=== PATIENT | male | born 2000 | race Caucasian/White ===

== ENCOUNTER 2019-05-17 01:36 | Inpatient (IN) ==
[2019-05-17 02:31] LABS: URINE SOURCE CLEAN CATCH
[2019-05-17] MEDS ORDERED: NS 1,000 ML IV ONE ×2 (02:35→05:45)
[2019-05-17] MEDS ORDERED: HUMULIN R SUBQ ONE (02:36)
[2019-05-17 02:37] LABS: BILIRUBIN URINE NEGATIVE (NEGATIVE); BLOOD URINE NEGATIVE (NEGATIVE); COLOR STRAW; GLUCOSE URINE >1000 mg/dL (NEGATIVE); KETONE URINE NEGATIVE (NEGATIVE); LEUKOCYTES URINE NEGATIVE (NEGATIVE); NITRITE URINE NEGATIVE (NEGATIVE); PROTEIN URINE NEGATIVE (NEGATIVE); TURBIDITY URINE CLEAR (CLEAR); UROBILINOGEN URINE NORMAL (NORMAL)
[2019-05-17 02:39] LABS: UR EPITHELIAL CELLS <10 /HPF (<10); URINE BACTERIA NEGATIVE /HPF; URINE RBC <10 /HPF (<10); URINE WBC <10 /HPF (<10)
[2019-05-17 03:20] LABS: BASO# 0.03 X1000 (0.0-0.2); BASO% 0.4 % (0.0-0.8); EOS# 0.26 X1000 (0.0-0.7); EOS% 3.8 % (0.0-10.0); HEMATOCRIT 40.8 % (42.0-52.0); LYMPH# 2.71 X1000 (1.2-3.4); LYMPH% 39.6 % (20.5-51.1); MCH 29.7 PG (27-31); MCHC 34.3 g/dL (33-37); MCV 86.6 FL (81-99); MONO# 0.38 X1000 (0.11-0.59); MONO% 5.6 % (1.7-9.3); MPV 10.2 FL (7.4-10.4); NEUT# 3.46 X1000 (1.4-6.5); NEUT% 50.6 % (42.2-75.2); PLT 231 X1000 (130-400); RBC 4.71 XMIL (4.7-6.1); RDW 11.9 % (11.5-14.5); WBC 6.84 X1000 (4.8-10.8)
[2019-05-17 04:06] LABS: AGAP 10; ALB/GLOB RATIO 2.1; ALBUMIN 4.2 g/dL (3.5-5.0); ALKALINE PHOSPHATASE 154 U/L (32-122); BUN 25 mg/dL (8-22); CALCIUM 8.9 mg/dL (8.8-10.2); CHLORIDE 90 mmol/L (98-107); COSMO 296; CREATININE 1.2 mg/dL (0.7-1.2); ESTIMATED GFR > 60; GOT 13 U/L (10-34); GPT 12 U/L (10-44); POTASSIUM 5.5 mmol/L (3.5-5.1); SODIUM 124 mmol/L (136-145); TCO2 24 mmol/L (25-35); TOTAL BILIRUBIN 0.18 mg/dL (0.20-1.00); TOTAL PROTEIN 6.2 g/dL (6.3-8.3)
[2019-05-17 04:09] LABS: GLUCOSE 845 mg/dL (70-104)
--- NOTE | 2019-05-17 05:49 | PROVIDER DOCUMENTATION ---
HPI-General Adult - General Chief Complaint: High Blood Sugar Stated Complaint: HIGH BLOOD SUGAR Time Seen by Provider: 05/17/19 01:47 Source: patient Allergies/Adverse Reactions: Patient Allergies Allergy/AdvReac Type Severity Reaction Status Date / Time No Known Allergies Allergy Verified 02/01/18 00:16 Home Medications: Home Medication List Medication Instructions Recorded Confirmed Last Taken Type Cephalexin [Keflex] 500 mg PO 4XDAY #40 capsule 02/01/18 Unknown Rx - History of Present Illness -Gen Adult Nature of Presenting Problems: Pt presents with hyperglycemia, pt is a type one diabetic, he hasn't been checking his sugars but he feels generalized weakness and nausea, when he typically feels this way his sugar is elevated, pt denies f/c, kay, cp, sob, cough, ap, n/v/d. Pt is lying in bed in no acute distress. Location of Pain/Injury: reports: none Pain Radiation: reports: no radiation Quality of Pain: reports: none Severity: reports: mild Onset/Duration: reports: 3 days ago Timing: reports: still present Context/Activities at Onset: reports: none Modifying Factors: improves with: nothing Associated Symptoms: reports: nausea Similar Symptoms Previously?: Yes Recently seen or treated by another doctor?: No Review of Systems - Adult - REVIEW OF SYSTEMS - ADULT Constitutional: reports: no symptoms reported Eyes: reports: no symptoms reported Ears, Nose, Mouth & Throat: reports: no symptoms reported Cardiovascular: reports: no symptoms reported Respiratory: reports: no symptoms reported Gastrointestinal: reports: no symptoms reported Genitourinary: reports: no symptoms reported Musculoskeletal: reports: no symptoms reported Integumentary: reports: no symptoms reported Neurological: reports: no symptoms reported Psychiatric: reports: no symptoms reported Endocrine: reports: see HPI Hematologic/Lymphatic: reports: no symptoms reported Allergic/Immunologic: reports: no symptoms reported All Other Systems: Reviewed and Negative Past History - Adult - PAST MEDICAL HISTORY-ADULT Review of Records: reports: Old Records Reviewed, Nursing Assessment Review, Medications Reviewed, Social history reviewed & non-contributory. Major Childhood Illnesses: reports: denies history Cardiovascular: reports: denies history Respiratory: reports: denies history Gastrointestinal: reports: denies history Obstetrical/Gynecological: reports: denies history Genitourinary: reports: denies history Musculoskeletal: reports: denies history Neurological: reports: denies history Psychiatric: reports: denies history Endocrine/Immune: reports: Diabetes Other Conditions: reports: denies history - PRIOR SURGERIES/PROCEDURES Surgical/Procedure History: reports: none - IMMUNIZATION STATUS Childhood Immunizations: See Nurse Assessment Flu Vaccine: See Nurse Assessment Physical Exam-General - PHYSICAL EXAM-ADULT Initial Vital Signs Reviewed: Yes - CONSTITUTIONAL General Appearance: appears well - EYES Eyes: PERRL/EOMI - HEAD, EARS, NOSE, MOUTH & THROAT HENMT: normocephalic/atraumatic - NECK Neck: normal inspection - RESPIRATORY Respiratory: lungs clear, no respiratory distress, no accessory muscle use - CARDIOVASCULAR Cardiovascular: regular rate, rhythm - GASTROINTESTINAL (ABDOMEN) Abdominal Exam: normal bowel sounds, non tender, soft - LYMPHATIC Lymphatic: no adenopathy - MUSCULOSKELETAL Back Exam: normal inspection Extremity: normal range of motion - SKIN Integumentary: normal color - NEUROLOGIC Neurologic: grossly normal - PSYCHIATRIC Psych/Mental Status: normal mood/affect Progress - PLAN OF CARE/RESULTS Progress/Plan/Lab Results: Vital Signs - 8 hr 05/17/19 01:52 05/17/19 02:03 05/17/19 02:32 Temperature 97.5 F L Pulse Rate 73 Respiratory Rate 16 Blood Pressure 157/95 145/95 148/79 O2 Sat by Pulse Oximetry 97 97 100 Laboratory Results - last 24 hr 05/17/19 05/17/19 05/17/19 01:56 02:17 02:17 WBC 6.84 RBC 4.71 Hgb 14.0 Hct 40.8 L MCV 86.6 MCH 29.7 MCHC 34.3 RDW Std Deviation 11.9 Plt Count 231 MPV 10.2 Immature Gran % (Auto) 0.0 Neut % (Auto) 50.6 Lymph % (Auto) 39.6 [place] % (Auto) 5.6 Eos % (Auto) 3.8 Baso % (Auto) 0.4 Immature Gran # (Auto) 0.00 Neut # (Auto) 3.46 Lymph # (Auto) 2.71 [place] # (Auto) 0.38 Eos # (Auto) 0.26 Baso # (Auto) 0.03 Sodium 124 L Potassium 5.5 H Chloride 90 L Carbon Dioxide 24 L Anion Gap 10 BUN 25 H Creatinine 1.2 Estimated GFR/1.73 m2 > 60 BUN/Creatinine Ratio 21 Glucose 845 H* Calculated Osmolality 296 Calcium 8.9 Total Bilirubin 0.18 L AST 13 ALT 12 Alkaline Phosphatase 154 H Total Protein 6.2 L Albumin 4.2 Globulin 2.0 Albumin/Globulin Ratio 2.1 Urine Source CLEAN CATCH Urine Color STRAW Urine Turbidity CLEAR Urine pH 7.0 Ur Specific [place] 1.020 Urine Protein NEGATIVE Ur Glucose (Stick) >1000 A Ur Ketones (Stick) NEGATIVE Urine Blood NEGATIVE Urine Nitrite NEGATIVE Urine Bilirubin NEGATIVE Urobilinogen Dipstick NORMAL Urine Leukocytes NEGATIVE Urine WBC (Auto) <10 Urine RBC (Auto) <10 U Epithel Cells (Auto) <10 Urine Bacteria (Auto) NEGATIVE Orders Category Date Time Status Finger Stick Blood Sugar (ED) DIRECTED Care 05/17/19 02:05 Active BMP [BASIC METABOLIC PANEL] [CHEM] Stat Lab 05/17/19 05:41 Ordered CBC WITH ELECTRONIC DIFF [HEME] Stat Lab 05/17/19 02:17 Completed COMPREHENSIVE METABOLIC PANEL [CHEM] Stat Lab 05/17/19 02:17 Completed UA [URINALYSIS W/POSS RFLX CULT] [URINALYSIS] Stat Lab 05/17/19 01:56 Completed 0.9% Sodium Chloride Inj [Ns] 1,000 ml Med 05/17/19 02:35 Discontinued IV 999 mls/hr 0.9% Sodium Chloride Inj [Ns] 1,000 ml Med 05/17/19 05:45 Active IV 999 mls/hr Insulin Human Regular [Humulin R] Med 05/17/19 02:36 Discontinued 10 unit SUBQ NOW ONE Hypo/Hyperglycemia Complaint Stat Oth 05/17/19 02:05 Ordered Glucose almost 900, will start on insulin drip and admit the patient, spoke with Dr. Lee and he accepted the admission Result Diagrams: 05/17/19 02:17 05/17/19 02:17 Departure - Departure Date of Disposition Decision: 05/17/19 Time of Disposition Decision: 05:48 DIAGNOSIS: Hyperglycemia due to type 1 diabetes mellitus Disposition: ADMITTED INPATIENT 09 Certified Medical Emergency: Emergent Condition: Stable Referrals and Follow-Ups: None,PCP [Primary Care Provider] - - Critical Care Note This patient required my direct & personal management of CC.: No Attestation - Physician/ RORO Attestation Patient care was provided by Advanced Practice Provider:: No The physician spent face to face time with patient:: Yes Advanced Practice Provider documentation review:: Supervising physician onsite and consulted in the evaluation and care of this patient. The physician did have a face to face encounter with the patient.
[2019-05-17] MEDS ORDERED: D50W SYRINGE IV PRN (05:50)
[2019-05-17] MEDS ORDERED: TYLENOL PO PRN (05:50)
[2019-05-17] MEDS ORDERED: ZOFRAN IV PRN (05:50)
[2019-05-17] MEDS ORDERED: HUMULIN R 100 UNIT in NS 100 ML IV SCH (06:00)
[2019-05-17] MEDS ORDERED: NS 1,000 ML IV SCH (06:00)
[2019-05-17] MEDS ORDERED: HUMALOG SUBQ SCH (06:15)
[2019-05-17 06:31] LABS: MAGNESIUM 1.8 mg/dL (1.5-2.7); PHOSPHORUS 3.9 mg/dL (2.7-4.5)
--- NOTE | 2019-05-17 06:42 | HISTORY AND PHYSICAL ---
CHIEF COMPLAINT: High blood sugar. HISTORY OF PRESENT ILLNESS: This is a 18-year-old male with diabetes type 1. He has not been checking his blood sugars regularly. Started feeling generalized weakness and nausea as well as polyphagia. He typically feels this way when his sugar is elevated. He denied any vomiting, diarrhea, headache, shortness of breath. He took his last 10 units of Regular insulin which did not make him feel better so he came into the emergency room. On arrival, his blood glucose was 845. He will be admitted for further evaluation and treatment. PAST MEDICAL HISTORY: Diabetes mellitus type 1. PREVIOUS SURGICAL HISTORY: Denies. SOCIAL HISTORY: Uses alcohol occasionally. He smokes 1/2 pack of cigarettes per day. Smoking cessation was gone over with the patient as well as alcohol cessation. He denies wanting to quit both at this time. Denies illicit drugs. FAMILY HISTORY: Denies chronic illness in his parents or siblings. States he is the only diabetic in the family. No history of coronary artery disease. ALLERGIES: No known drug allergies. HOME MEDICATIONS: Insulin however he stated he does not check his blood sugar regularly and he also was out of insulin. REVIEW OF SYSTEMS: Fourteen point review of systems conducted with the patient. Pertinent positives listed above in the HPI. All other systems reviewed and found to be negative. PHYSICAL EXAMINATION: VITAL SIGNS: Temp 97.5 degrees, pulse 73, respirations 16, blood pressure 148/79, oxygen saturation 100% on room air. GENERAL: Pleasant 18-year-old male lying in the ER stretcher. Answers all questions appropriately. He is alert and oriented x3. HEENT: Head is atraumatic, normocephalic. Pupils equal, round and reactive to light. Extraocular eye movements intact. Sclerae anicteric. Conjunctivae pink. Oral mucosa is dry. NECK: Supple. No JVD. No thyromegaly. Trachea is midline. No cervical lymphadenopathy. CARDIAC: S1, S2 appreciated. No murmurs, gallops, rubs. LUNGS: Clear to auscultation bilaterally. No rhonchi, wheezes, rubs. Symmetric rise and fall of respirations. ABDOMEN: Soft, nondistended, nontender. Bowel sounds present all 4 quadrants. Normoactive. No pulsatile masses or organomegaly. EXTREMITIES: No cyanosis, clubbing or edema. 2+ pedal pulses bilaterally. GENITOURINARY: No bladder distention. Patient voids, otherwise deferred. NEUROLOGICAL: Alert and oriented x3. Cranial nerves 2-12 grossly intact. LABORATORY DATA: CBC within normal limits. Sodium 124, potassium 5.5, chloride 90, carbon dioxide 24, BUN 25, creatinine 1.2. Glucose 845. Urine unremarkable. ASSESSMENT AND PLAN: 1. Uncontrolled diabetes mellitus type 1. Check hemoglobin A1c. He was given 1 liter of fluid in the emergency room. We will give an additional liter of fluid and start normal saline at 125 mL an hour. Moderate dose sliding scale insulin, q.4 hour fingersticks. Recheck BMP. We will also check a magnesium and phosphorus. 2. Fluid volume depletion. See above. 3. Hyponatremia. This is from volume depletion. See plan above. 4. Hyperkalemia. This will likely come back in line as the patient's blood sugar normalizes. Further recommendations based on the patient's clinical course. Dictated by RUTHY Andre for Mario Lee MD cc: RUTHY Andre MD Pt is not in any overt DKA at this time. Pt. will on need IVF boluses, Accuchecks with low sliding scale insulin along with his home dose long acting insulin. MTDD
--- NOTE | 2019-05-17 09:52 | DISCHARGE SUMMARY ---
ADMISSION DATE: 05/17/2019 DISCHARGE DATE: 05/17/2019 HOSPITAL COURSE: Briefly, Mr. Coyle is a 18-year-old male with type 1 diabetes who does not check his blood sugars regularly. He started feeling weakness, nausea and polyphagia. He was admitted around 6 a.m. on 05/17/2019 for uncontrolled diabetes, fluid volume depletion, hyponatremia and hyperkalemia. The patient has received IV fluids as well as an additional liter of fluid and was initiated on normal saline at 125 per hour. He told the ED staff that he was feeling better and was not willing to be moved upstairs. I went in to try to speak with the patient; however, he states that he is feeling better, he knows himself and he signed out AMA. Dictated by RUTHY Banks for Dionte Roberson MD Addendum: Patient seen and examined by myself. Agree with CNRP note. It reflects my assessment and plan. Patient unfortunately has decided to leave hospital AMA. cc: Dionte Roberson MD MTDD
[2019-05-17 10:16] VITALS: BP 120/81
== END 2019-05-17 08:21 | disposition left against medical advice (07) | DRG 638 ==
LOC: ED 01:36 → 2N 07:27 → SUATTDRO 07:27 → 2N 08:20 → EDIPHOLD 11:12
PROVIDERS: ATTEND Internal Medicine

== ENCOUNTER 2019-09-17 15:59 | Inpatient (IN) ==
[2019-09-17] MEDS ORDERED: NITROGLYCERIN SL ONE (16:23)
[2019-09-17] MEDS ORDERED: ASPIRIN PO ONE (16:23)
[2019-09-17] MEDS ORDERED: NS 1,000 ML IV ONE (16:24)
[2019-09-17] MEDS ORDERED: ZOFRAN IV ONE ×2 (16:30→18:09)
--- NOTE | 2019-09-17 16:30 | Diag Imaging Result Doc PS360 ---
EXAM: CHEST-1 VIEW HISTORY: SOB TECHNIQUE: Chest single view COMPARISON: None. FINDINGS: The lungs are well expanded. The heart is not enlarged. The vessels are not distended. There are no infiltrates. No effusion identified. IMPRESSION: Negative exam. Electronically signed by Helder Bernard 09/17/2019 4:27 PM
[2019-09-17 16:53] LABS: ALLEN TEST NO; BE -14.3 mmoll (-3.0-3.0); BLOOD TYPE ARTERIAL; HCO3-(ACT) 13.7 mmoll (20.0-26.0); O2(CT) 20.7 mL/dL (15.0-23.0); O2HB 95.4 % (95.0-99.0); PCO2(98.6) 25 mmHg (35-45); PO2(98.6) 101 mmHg (60-100); SAMPLE BLOOD; SAO2 98.6 % (95.0-100.0); THB 15.4 g/dL (11.5-17.4); pH(98.6) 7.25 (7.35-7.45)
[2019-09-17 16:54] LABS: MODALITY ROOM AIR
[2019-09-17 16:58] LABS: BASO# 0.05 X1000 (0.0-0.2); BASO% 0.4 % (0.0-0.8); EOS# 0.31 X1000 (0.0-0.7); EOS% 2.6 % (0.0-10.0); HEMOGLOBIN 15.4 g/dL (14.0-18.0); IMM GRAN# 0.05 X1000 (0.0-0.04); IMM GRAN% 0.4 % (0.0-0.5); LYMPH# 4.33 X1000 (1.2-3.4); LYMPH% 36.6 % (20.5-51.1); MCH 29.1 PG (27-31); MCHC 33.5 g/dL (33-37); MONO# 0.77 X1000 (0.11-0.59); MONO% 6.5 % (1.7-9.3); MPV 10.5 FL (7.4-10.4); NEUT# 6.31 X1000 (1.4-6.5); NEUT% 53.5 % (42.2-75.2); PLT 343 X1000 (130-400); RBC 5.29 XMIL (4.7-6.1); RDW 12.6 % (11.5-14.5); WBC 11.82 X1000 (4.8-10.8)
[2019-09-17] MEDS ORDERED: ROCEPHIN 1 GM in NS 50 ML IV ONE (17:00)
[2019-09-17 17:04] LABS: INR 0.96; PROTIME 12.8 Seconds (11.0-16.0); PTT 21.5 Seconds (22.3-41.8)
[2019-09-17 17:14] LABS: URINE SOURCE CLEAN CATCH
[2019-09-17 17:21] LABS: BILIRUBIN URINE NEGATIVE (NEGATIVE); BLOOD URINE NEGATIVE (NEGATIVE); COLOR STRAW; GLUCOSE URINE >1000 mg/dL (NEGATIVE); KETONE URINE >150 mg/dL (NEGATIVE); LEUKOCYTES URINE NEGATIVE (NEGATIVE); NITRITE URINE NEGATIVE (NEGATIVE); PH URINE 5.5; PROTEIN URINE TRACE mg/dL (NEGATIVE); SP GRAVITY URINE 1.029; TURBIDITY URINE CLEAR (CLEAR); UROBILINOGEN URINE NORMAL (NORMAL)
[2019-09-17 17:23] LABS: UR EPITHELIAL CELLS <10 /HPF (<10); URINE BACTERIA NEGATIVE /HPF; URINE RBC <10 /HPF (<10); URINE WBC <10 /HPF (<10)
[2019-09-17 17:28] LABS: AGAP 36; ALBUMIN 4.8 g/dL (3.5-5.0); ALKALINE PHOSPHATASE 124 U/L (32-122); BUN 19 mg/dL (8-22); CALCIUM 9.9 mg/dL (8.8-10.2); CHLORIDE 84 mmol/L (98-107); CK PROFILE 124 U/L (24-204); COSMO 287; CREATININE 1.5 mg/dL (0.7-1.2); ESTIMATED GFR 60; GLUCOSE 434 mg/dL (70-104); GOT 21 U/L (10-34); GPT 15 U/L (10-44); MAGNESIUM 1.9 mg/dL (1.5-2.7); PHOSPHORUS 5.1 mg/dL (2.7-4.5); POTASSIUM 4.8 mmol/L (3.5-5.1); SODIUM 133 mmol/L (136-145); TCO2 13 mmol/L (25-35); TOTAL BILIRUBIN 1.07 mg/dL (0.20-1.00); TOTAL PROTEIN 7.2 g/dL (6.3-8.3)
[2019-09-17 17:30] LABS: UR AMPHETAMINES QUAL NONE DETECTED (NONE DETECT); UR BARBITUATES QUAL NONE DETECTED (NONE DETECT); UR BENZODIAZEPIN QUAL NONE DETECTED (NONE DETECT); UR CANNABINOIDS QUAL PRESUMPTIVE POSITIVE (NONE DETECT); UR COCAINE QUAL PRESUMPTIVE POSITIVE (NONE DETECT); UR METHADONE QUAL NONE DETECTED (NONE DETECT); UR OPIATES QUAL NONE DETECTED (NONE DETECT); UR OXYCODONE QUAL NONE DETECTED (NONE DETECT); UR PCP QUAL NONE DETECTED (NONE DETECT)
[2019-09-17 17:31] LABS: ACETONE SERUM LARGE (NEGATIVE)
[2019-09-17] MEDS ORDERED: NS 1,500 ML IV ONE (17:35)
[2019-09-17] MEDS ORDERED: POTASSIUM CHLORIDE 20 MEQ/SWI 20 MEQ/100 ML IVPB IV PRN (17:37)
[2019-09-17] MEDS ORDERED: SODIUM PHOSPHATE 30 MMOL in D5W 250 ML IV PRN (17:37)
[2019-09-17] MEDS ORDERED: D50W SYRINGE IV PRN ×2 (17:37→18:47)
[2019-09-17] MEDS ORDERED: MAGNESIUM SULFATE 2 GM/S.W.I. 2 GM/50 ML IVPB IV PRN (17:37)
[2019-09-17] MEDS ORDERED: HUMULIN R 100 UNIT in NS 100 ML IV SCH (17:45)
[2019-09-17] MEDS ORDERED: HUMULIN R IV ONE (18:02)
--- NOTE | 2019-09-17 18:08 | EKG Report ---
Test Performed on : 09/17/2019 4:13:54 PM Test Reason : CP Blood Pressure : / mmHG Vent. Rate : 087 BPM Atrial Rate : 087 BPM P-R Int : 158 ms QRS Dur : 096 ms QT Int : 340 ms P-R-T Axes : 070 092 056 degrees QTc Int : 409 ms Normal sinus rhythm. with sinus arrhythmia. Rightward axis Cannot rule out Anterior infarct , age undetermined Abnormal ECG No previous ECGs available Unconfirmed Result
--- NOTE | 2019-09-17 18:46 | PROVIDER DOCUMENTATION ---
This chart was entered by Eunice Hernandes Scribfarideh, acting as scribe for Stef Gallo MD. HPI-Chest Pain - General Chief Complaint: SEPSIS ALERT - D Stated Complaint: CP,HARD TIME BREATHING,VOMITING,DIABETIC Time Seen by Provider: 09/17/19 16:10 Source: patient, family (mom and dad) Allergies/Adverse Reactions: Patient Allergies Allergy/AdvReac Type Severity Reaction Status Date / Time No Known Allergies Allergy Verified 09/17/19 16:30 Home Medications: Home Medication List Medication Instructions Recorded Confirmed Last Taken Type NK [No Home Medications] 09/17/19 09/17/19 Unknown History - History of Present Illness-CP Nature of Presenting Problem: pt is a 19 yowm brought into the ED by his parents complaining of chest pain. Pt has diebetes and has not seen his diebetic dr in several years. Pt admitted to alcohol and drug consumption Thursday night. Pt states that he has had several episodes of dry heaves, SOB, and sternum pain radiating into both upper arms. Pt is alert and nontoxic in appearance. Location: reports: central Chest Pain Radiation: reports: no radiation, shoulders (both) Quality of Pain: reports: aching, sharp, throbbing Severity in ED: moderate Onset/Duration: abrupt, 1-3 hours ago Timing: still present, intermittent, constant Context/Activities at Onset: reports: light activity Associated Symptoms: reports: nausea, vomiting (x4 dry heaving). denies: dizziness Nitro Today/Relief: 0.4 mg x 1, provided by ED Prior Chest Pain/Cardiac Workup: reports: no prior chest pain Similar Symptoms Previously?: No Recently Seen Here or By Another Healthcare Provider: No Review of Systems - Adult - REVIEW OF SYSTEMS - ADULT Constitutional: denies: chills, fever Eyes: reports: no symptoms reported Ears, Nose, Mouth & Throat: reports: no symptoms reported Cardiovascular: reports: see HPI, chest pain. denies: syncope Respiratory: reports: see HPI, shortness of breath. denies: cough, wheezing Gastrointestinal: reports: nausea, vomiting (x4 dry heaves). denies: abdominal pain Genitourinary: reports: no symptoms reported Musculoskeletal: denies: back pain, neck pain Integumentary: reports: no symptoms reported Neurological: denies: dizziness/vertigo, syncope Psychiatric: reports: no symptoms reported Endocrine: reports: no symptoms reported Hematologic/Lymphatic: reports: no symptoms reported Allergic/Immunologic: reports: no symptoms reported All Other Systems: Reviewed and Negative Past History - Adult - PAST MEDICAL HISTORY-ADULT Review of Records: reports: Nursing Assessment Review, Medications Reviewed, Social history reviewed & non-contributory. Major Childhood Illnesses: reports: denies history Cardiovascular: reports: denies history Respiratory: reports: denies history Gastrointestinal: reports: denies history Genitourinary: reports: denies history Musculoskeletal: reports: denies history Neurological: reports: denies history Psychiatric: reports: denies history Endocrine/Immune: reports: Diabetes Diabetes Type: Type 1 Other Conditions: reports: denies history - PRIOR SURGERIES/PROCEDURES Surgical/Procedure History: reports: none - IMMUNIZATION STATUS Childhood Immunizations: See Nurse Assessment Flu Vaccine: See Nurse Assessment - SOCIAL HISTORY Smoking: cigarettes, greater than 1 pack/day Provider spent 3-5 mins advising pt. on dangers of tobacco.: Discussed manners to quit use, and f/u contacts for add'l counseling. Substance Use: alcohol, marijuana Alcohol Use Frequency: 5-6 times a week Number of drinks per typical drinking period:: 3-4 drinks Living Situation: family (parents) Physical Exam-General - PHYSICAL EXAM-ADULT Initial Vital Signs Reviewed: Yes (HR 102) - CONSTITUTIONAL General Appearance: alert, mild distress - EYES Eyes: PERRL/EOMI - HEAD, EARS, NOSE, MOUTH & THROAT HENMT: normocephalic/atraumatic, other (dry mucus membranes) - NECK Neck: non-tender, full range of motion - RESPIRATORY Respiratory: lungs clear, normal breath sounds - CARDIOVASCULAR Cardiovascular: normal peripheral pulses, tachycardia - GASTROINTESTINAL (ABDOMEN) Abdominal Exam: non tender, soft - MUSCULOSKELETAL Back Exam: no CVA tenderness, no vertebral tenderness Extremity: normal range of motion, non-tender, normal gait - SKIN Integumentary: normal color, normal turgor, warm/dry - PSYCHIATRIC Psych/Mental Status: normal mood/affect, normal thought content, normal thought process, oriented x 3 - HEART Score HEART Score: History: Moderately Suspicious HEART Score: ECG: Non-Specific Repolarization Disturbance/LBBB/PM HEART Score: Age: < or = 45 Years HEART Score: Risk Factors for Atherosclerotic Disease: 1 or 2 Risk Factors HEART Score: Troponin: < or = Normal Limit Total HEART Score:: 3 Progress - PLAN OF CARE/RESULTS Progress/Plan/Lab Results: Vital Signs - 8 hr 09/17/19 16:04 09/17/19 16:25 Temperature 97.5 F L Pulse Rate 102 H 112 H Respiratory Rate 22 24 Blood Pressure 154/79 148/72 O2 Sat by Pulse Oximetry 98 100 Laboratory Results - last 24 hr 09/17/19 09/17/19 09/17/19 16:11 16:30 16:30 WBC 11.82 H RBC 5.29 Hgb 15.4 Hct 46.0 MCV 87.0 MCH 29.1 MCHC 33.5 RDW Std Deviation 12.6 Plt Count 343 MPV 10.5 H Immature Gran % (Auto) 0.4 Neut % (Auto) 53.5 Lymph % (Auto) 36.6 [place] % (Auto) 6.5 Eos % (Auto) 2.6 Baso % (Auto) 0.4 Immature Gran # (Auto) 0.05 H Neut # (Auto) 6.31 Lymph # (Auto) 4.33 H [place] # (Auto) 0.77 H Eos # (Auto) 0.31 Baso # (Auto) 0.05 PT INR PTT (Actin FS) Specimen Type Sample Site pH pCO2 pO2 HCO3 Base Excess Oxyhemoglobin ABG O2 Sat (Calculated) ABG O2 Saturation ABG Carboxyhemoglobin ABG Methemoglobin James Test A-a O2 Difference Total Hemoglobin Lactate Blood Gas Modality FiO2 % Sodium 133 L Potassium 4.8 Chloride 84 L Carbon Dioxide 13 L Anion Gap 36 BUN 19 Creatinine 1.5 H Estimated GFR/1.73 m2 60 BUN/Creatinine Ratio 13 Glucose 434 H* POC Glucose 389 H D Calculated Osmolality 287 Calcium 9.9 Phosphorus 5.1 H Magnesium 1.9 Total Bilirubin 1.07 H AST 21 ALT 15 Alkaline Phosphatase 124 H Creatine Kinase 124 Troponin T Total Protein 7.2 Albumin 4.8 Globulin 2.4 Albumin/Globulin Ratio 2.0 Plasma Lactate Urine Source Urine Color Urine Turbidity Urine pH Ur Specific Williams Urine Protein Ur Glucose (Stick) Ur Ketones (Stick) Urine Blood Urine Nitrite Urine Bilirubin Urobilinogen Dipstick Urine Leukocytes Urine WBC (Auto) Urine RBC (Auto) U Epithel Cells (Auto) Urine Bacteria (Auto) Urine Opiates Screen Ur Oxycodone Screen Ur Methadone, Qual Ur Barbiturates Screen Ur Phencyclidine Scrn Ur Amphetamines Screen U Benzodiazepines Scrn Urine Cocaine Screen U Cannabinoids Screen Acetone Level LARGE A 09/17/19 09/17/19 09/17/19 16:30 16:30 16:30 WBC RBC Hgb Hct MCV MCH MCHC RDW Std Deviation Plt Count MPV Immature Gran % (Auto) Neut % (Auto) Lymph % (Auto) [place] % (Auto) Eos % (Auto) Baso % (Auto) Immature Gran # (Auto) Neut # (Auto) Lymph # (Auto) [place] # (Auto) Eos # (Auto) Baso # (Auto) PT 12.8 INR 0.96 PTT (Actin FS) 21.5 L Specimen Type Sample Site pH pCO2 pO2 HCO3 Base Excess Oxyhemoglobin ABG O2 Sat (Calculated) ABG O2 Saturation ABG Carboxyhemoglobin ABG Methemoglobin James Test A-a O2 Difference Total Hemoglobin Lactate Blood Gas Modality FiO2 % Sodium Potassium Chloride Carbon Dioxide Anion Gap BUN Creatinine Estimated GFR/1.73 m2 BUN/Creatinine Ratio Glucose POC Glucose Calculated Osmolality Calcium Phosphorus Magnesium Total Bilirubin AST ALT Alkaline Phosphatase Creatine Kinase Troponin T < 0.010 Total Protein Albumin Globulin Albumin/Globulin Ratio Plasma Lactate 4.2 H* Urine Source Urine Color Urine Turbidity Urine pH Ur Specific Williams Urine Protein Ur Glucose (Stick) Ur Ketones (Stick) Urine Blood Urine Nitrite Urine Bilirubin Urobilinogen Dipstick Urine Leukocytes Urine WBC (Auto) Urine RBC (Auto) U Epithel Cells (Auto) Urine Bacteria (Auto) Urine Opiates Screen Ur Oxycodone Screen Ur Methadone, Qual Ur Barbiturates Screen Ur Phencyclidine Scrn Ur Amphetamines Screen U Benzodiazepines Scrn Urine Cocaine Screen U Cannabinoids Screen Acetone Level 09/17/19 09/17/19 09/17/19 16:45 17:10 17:10 WBC RBC Hgb Hct MCV MCH MCHC RDW Std Deviation Plt Count MPV Immature Gran % (Auto) Neut % (Auto) Lymph % (Auto) [place] % (Auto) Eos % (Auto) Baso % (Auto) Immature Gran # (Auto) Neut # (Auto) Lymph # (Auto) [place] # (Auto) Eos # (Auto) Baso # (Auto) PT INR PTT (Actin FS) Specimen Type ARTERIAL Sample Site R BRACHIAL pH 7.25 L pCO2 25 L pO2 101 H HCO3 13.7 L Base Excess -14.3 L Oxyhemoglobin 95.4 ABG O2 Sat (Calculated) 20.7 ABG O2 Saturation 98.6 ABG Carboxyhemoglobin 2.20 ABG Methemoglobin 1.0 James Test NO A-a O2 Difference 17.0 Total Hemoglobin 15.4 Lactate 4.00 H* Blood Gas Modality ROOM AIR FiO2 % 21.0 Sodium Potassium Chloride Carbon Dioxide Anion Gap BUN Creatinine Estimated GFR/1.73 m2 BUN/Creatinine Ratio Glucose POC Glucose Calculated Osmolality Calcium Phosphorus Magnesium Total Bilirubin AST ALT Alkaline Phosphatase Creatine Kinase Troponin T Total Protein Albumin Globulin Albumin/Globulin Ratio Plasma Lactate Urine Source CLEAN CATCH Urine Color STRAW Urine Turbidity CLEAR Urine pH 5.5 Ur Specific Williams 1.029 Urine Protein TRACE A Ur Glucose (Stick) >1000 A Ur Ketones (Stick) >150 A Urine Blood NEGATIVE Urine Nitrite NEGATIVE Urine Bilirubin NEGATIVE Urobilinogen Dipstick NORMAL Urine Leukocytes NEGATIVE Urine WBC (Auto) <10 Urine RBC (Auto) <10 U Epithel Cells (Auto) <10 Urine Bacteria (Auto) NEGATIVE Urine Opiates Screen NONE DETECTED Ur Oxycodone Screen NONE DETECTED Ur Methadone, Qual NONE DETECTED Ur Barbiturates Screen NONE DETECTED Ur Phencyclidine Scrn NONE DETECTED Ur Amphetamines Screen NONE DETECTED U Benzodiazepines Scrn NONE DETECTED Urine Cocaine Screen PRESUMPTIVE POSITIVE A U Cannabinoids Screen PRESUMPTIVE POSITIVE A Acetone Level Orders Category Date Time Status Cardiac Monitoring DIRECTED Care 09/17/19 16:14 Active Cardiac Monitoring DIRECTED Care 09/17/19 17:44 Active FSBS/Accucheck Result Q15M Care 09/17/19 17:47 Active FSBS/Accucheck Result Q1H Care 09/17/19 16:19 Active FSBS/Accucheck Result Q1H Care 09/17/19 17:44 Active Hypoglycemia/FSBS <50 or Range of 50-70 PRN Care 09/17/19 17:47 Active IV Insertion ORDERED Care 09/17/19 16:14 Completed Notify MD of + Sepsis Screen NOW Care 09/17/19 16:14 Active Notify Physician ORDERED Care 09/17/19 17:47 Active Notify Physician As Ordered Care 09/17/19 16:14 Active Saline Loc DIRECTED Care 09/17/19 17:47 Active Saline Loc NOW Care 09/17/19 16:19 Active Saline Loc NOW Care 09/17/19 17:44 Active Vital Signs Order Q1H Care 09/17/19 16:19 Active Vital Signs Order Q1H Care 09/17/19 17:44 Active Vital Signs Order Q1H Care 09/17/19 18:02 Active CHEST-1 VIEW [RAD] Stat Exams 09/17/19 16:14 Completed ABG [RESP] Routine Lab 09/17/19 16:45 Completed ACETONE SERUM [CHEM] Stat Lab 09/17/19 16:30 Completed BLOOD CULTURE [BLDCUL] Stat Lab 09/17/19 16:30 Results CBC WITH DIFF [HEME] Stat Lab 09/17/19 16:30 Completed CK PROFILE [SP CHEM] Stat Lab 09/17/19 16:30 Completed COMPREHENSIVE METABOLIC PANEL [CHEM] Stat Lab 09/17/19 16:30 Completed LACTATE, PLASMA [CHEM] Q3H Lab 09/17/19 16:30 Completed LACTATE, PLASMA [CHEM] Q3H Lab 09/17/19 19:15 Uncollected LACTATE, PLASMA [CHEM] Q3H Lab 09/17/19 22:15 Uncollected MAGNESIUM [CHEM] Stat Lab 09/17/19 16:30 Completed PHOSPHORUS [CHEM] Stat Lab 09/17/19 16:30 Completed PROTIME WITH INR [COAG] Stat Lab 09/17/19 16:30 Completed PTT [COAG] Stat Lab 09/17/19 16:30 Completed TROPONIN T Stat Lab 09/17/19 16:30 Completed URINALYSIS W/POSS RFLX CULT [URINALYSIS] Stat Lab 09/17/19 17:10 Completed URINE DRUG SCREEN Stat Lab 09/17/19 17:10 Completed 0.9% Sodium Chloride Inj [Ns] 1,000 ml Med 09/17/19 16:24 Discontinued IV 999 mls/hr 0.9% Sodium Chloride Inj [Ns] 1,500 ml Med 09/17/19 17:35 Active IV 999 mls/hr 0.9% Sodium Chloride Inj [Ns] 100 ml Med 09/17/19 17:45 Active Insulin Human Regular [Humulin R] 100 unit IV Per Protocol mls/hr Aspirin Med 09/17/19 16:23 Discontinued 325 mg PO NOW ONE CefTRIAXONE [Rocephin] 1 gm Med 09/17/19 17:00 Discontinued 0.9% Sodium Chloride Inj [Ns] 50 ml IV NOW Dextrose 50% Syringe [D50w Syringe] Med 09/17/19 17:37 Active 50 ml IV PRN PRN Insulin Human Regular [Humulin R] Med 09/17/19 18:02 Discontinued 7.9 unit IV ONCE ONE Magnesium Sulfate 2 gm/S.w.i. Med 09/17/19 17:37 Active 2 gm in 50 ml IV ONCE PRN Nitroglycerin Sl [Nitroglycerin] Med 09/17/19 16:23 Discontinued 0.4 mg SL NOW ONE Ondansetron [Zofran] Med 09/17/19 16:30 Discontinued 4 mg IV NOW ONE Ondansetron [Zofran] Med 09/17/19 18:09 Discontinued 4 mg IV NOW ONE Potassium Chloride 20 Meq/Swi Med 09/17/19 17:37 Active 20 meq in 100 ml IV ONCE PRN Sodium Phosphate 30 mmol Med 09/17/19 17:37 Active Dextrose 5%-Water Inj [D5w] 250 ml IV ONCE PRN Hypoglycemia Stat Oth 09/17/19 17:44 Ordered Oxygen Device Stat Oth 09/17/19 16:14 Active EKG [EKG] Routine Ther 09/17/19 16:19 Draft EKG [EKG] Stat Ther 09/17/19 17:50 Ordered Result Diagrams: 09/17/19 16:30 09/17/19 16:30 - REASSESSMENT Reassessment #1 Time Reassessed: 18:00 Status: improving (chest pain has almost subsided, some nausea, no vomiting. Awake, oriented x 3) Reassessment #2 Time Reassessed: 18:30 Status: improving (no chest pain . AAOx 3. discussed lab result with him and the need for hospitalization. Hospitalist was then paged. DKA protocol has been initiated) - EKG 1 Time of EKG reading by physician:: 16:23 EKG Read and Signed by:: Umberto Amezquita EKG Interpretation (*Must complete 3 of following elements*): Abnormal Rate: 87 Rhythm: NSR w/ sinus arrhythmia [place]: right (rightwar axis) QRS: normal [place] Interval: normal ST Wave: normal Comments: Cannot rule out Anterior infarct, age undetermined - XRAY 1 XRAY Study: Chest ( EXAM: CHEST-1 VIEW HISTORY: SOB TECHNIQUE: Chest single view COMPARISON: None. FINDINGS: The lungs are well expanded. The heart is not enlarged. The vessels are not distended. There are no infiltrates. No eff usion identified. IMPRESSION: Negative exam.) Impression: See EMR Report (EXAM: CHEST-1 VIEW HISTORY: SOB TECHNIQUE: Chest single view COMPARISON: None. FINDINGS: The lungs are well expanded. The heart is not enlarged. The vessels are not distended. There are no infiltrates. No effusion identified. IMPRESSION: Negative exam. Electronically signed by Helder Bernard 09/17/2019 4:27 PM 09/17/191626 Interpreting Physician: Helder Bernard MD Dictated Date/Time: 09/17/191626 cc: Stef Gallo MD; None,PCP) - CONSULTS/PCP/HOSPITALIST Notification #1 *Consult/PCP/Hospitalist*: dr Birch Time Discussed: 18:40 Consult Disposition: Admit (accepts admission) Departure - Departure Date of Disposition Decision: 09/17/19 Time of Disposition Decision: 18:35 DIAGNOSIS: Substance abuse DKA (diabetic ketoacidoses) Qualifiers: Diabetes mellitus type: type 1 Diabetes mellitus complication detail: without coma Qualified Code(s): E10.10 - Type 1 diabetes mellitus with ketoacidosis without coma Chest pain Qualifiers: Chest pain type: unspecified Qualified Code(s): R07.9 - Chest pain, unspecified Nausea & vomiting Qualifiers: Vomiting type: unspecified Vomiting Intractability: non-intractable Qualified Code(s): R11.2 - Nausea with vomiting, unspecified Disposition: ADMITTED INPATIENT 09 Certified Medical Emergency: Emergent Condition: Critical Referrals and Follow-Ups: None,PCP [Primary Care Provider] - - Critical Care Note This patient required my direct & personal management of CC.: Yes Total Time (mins): 38 Critical Care Statement: This patient required my direct personal management to treat or rule out processes, the absence of which, could potentiallly result in sudden, clinically significant life or limb threatening deterioration. Attestation - Physician/ RORO Attestation Patient care was provided by Advanced Practice Provider:: No The physician spent face to face time with patient:: Yes Advanced Practice Provider documentation review:: Supervising physician onsite and consulted in the evaluation and care of this patient. The physician did have a face to face encounter with the patient. This chart was documented by the indicated scribe, (Eunice Hernandes Scribe) and accurately reflects the services I performed and decisions made by me, Stef Gallo MD, as attested by the provider's signature.
[2019-09-17] MEDS ORDERED: D5 NS 1,000 ML IV PRN (18:47)
[2019-09-17] MEDS ORDERED: POTASSIUM CHLORIDE 20% LIQUID PO PRN (18:47)
[2019-09-17] MEDS ORDERED: POTASSIUM CHLORIDE 10% LIQUID PO PRN (18:47)
[2019-09-17] MEDS ORDERED: ZOFRAN IV PRN (18:47)
[2019-09-17] MEDS ORDERED: TYLENOL PO PRN (18:47)
--- NOTE | 2019-09-17 18:51 | ED EKG INTERP ---
This chart was entered by Abimbola Melvin Scribe, acting as scribe for Stef Gallo MD. EKG Interpretation - EKG Time of EKG reading by physician:: 18:19 EKG Read and Signed by:: Stef Gallo EKG Interpretation (*Must complete 3 of following elements*): Normal (Borderline) Rate: 103 Rhythm: Sinus tach [place]: right QRS: normal [place] Interval: normal ST Wave: normal Attestation - Physician/ RORO Attestation Patient care was provided by Advanced Practice Provider:: No The physician spent face to face time with patient:: Yes Advanced Practice Provider documentation review:: Supervising physician onsite and consulted in the evaluation and care of this patient. The physician did have a face to face encounter with the patient. This chart was documented by the indicated scribe, (Abimbola Melvin Scribe) and accurately reflects the services I performed and decisions made by me, Stef Gallo MD, as attested by the provider's signature.
[2019-09-17] MEDS ORDERED: NS 1,000 ML ONE (18:52)
[2019-09-17] MEDS ORDERED: NS 1,000 ML IV SCH (19:00)
[2019-09-17 20:29] VITALS: BP 138/68
--- NOTE | 2019-09-17 21:38 | EKG Report ---
Test Performed on : 09/17/2019 6:19:05 PM Test Reason : CP Blood Pressure : / mmHG Vent. Rate : 103 BPM Atrial Rate : 103 BPM P-R Int : 160 ms QRS Dur : 090 ms QT Int : 334 ms P-R-T Axes : 067 090 043 degrees QTc Int : 437 ms Sinus tachycardia. Rightward axis Borderline ECG When compared with ECG of 17-SEP-2019 16:13, (Unconfirmed) No significant change was found Unconfirmed Result
[2019-09-18 00:44] LABS: AGAP 27; BUN 16 mg/dL (8-22); CALCIUM 8.4 mg/dL (8.8-10.2); CHLORIDE 96 mmol/L (98-107); COSMO 276; CREATININE 1.3 mg/dL (0.7-1.2); ESTIMATED GFR > 60; GLUCOSE 157 mg/dL (70-104); MAGNESIUM 1.7 mg/dL (1.5-2.7); PHOSPHORUS 2.6 mg/dL (2.7-4.5); POTASSIUM 4.8 mmol/L (3.5-5.1); SODIUM 136 mmol/L (136-145); TCO2 13 mmol/L (25-35)
[2019-09-18] MEDS: NS 1,000 ML IV SCH (01:36)
--- NOTE | 2019-09-18 02:00 | HISTORY AND PHYSICAL ---
CHIEF COMPLAINT: 1. Nausea, vomiting. 2. Chest discomfort since afternoon. HISTORY OF PRESENT ILLNESS: Mr. Coyle is 19-year-old man with past medical history of type 1 diabetes mellitus and intermittent asthma, who came in with chief complaints of nausea, vomiting multiple episodes, chest did have discomfort with radiation to left arm, which started at around 3 p.m. today. The patient is a known type 1 diabetic and usually takes insulin NPH 70/30, 15 units twice a day. However, he admits to not taking it regularly. He states his last dose was yesterday night. He, however, was never admitted for DKA in the past. He also admits to smoking half a pack a day every day, smoking marijuana 3 to 4 times every day, smoking tobacco. He states in the past he has tried methamphetamines and for the 1st time he tried snorting cocaine about 6 days prior to current presentation, though he denies using it today or yesterday. His mother is present at the bedside. When he was brought to the emergency room, he was found to have an elevated anion gap, metabolic acidosis, urine toxicology positive for cocaine and hyperglycemia. He was diagnosed with DKA, intravenous fluid resuscitation, insulin was started and hospitalist team was consulted for further management. REVIEW OF SYSTEMS: Currently negative for chest pain, negative for shortness of breath, negative for palpitation. Positive for nausea and vomiting. Negative for abdominal pain. PAST MEDICAL HISTORY: Diabetes mellitus type 1, insulin-dependent diagnosed when he was 9 years old, history of intermittent asthma. PAST SURGICAL HISTORY: Toenail removal for ingrown toenail. FAMILY HISTORY: Not significant. PERSONAL HISTORY: Active tobacco use, half a pack a day since last 3 years. Active marijuana smoking 2 to 3 times a day since last 2 to 3 years. Intermittent use of other recreational substances, like cocaine and methamphetamines. VITALS: His current temperature is 97.5 degrees, pulse 102, respiratory 22, blood pressure 140/72. He is saturating 100% on room air. PHYSICAL EXAMINATION: HEENT: Oral cavity is moist. CHEST: Air entry bilaterally equal. No wheeze or crackles. CARDIOVASCULAR: S1, S2 normal. No murmur or gallop. ABDOMEN: Soft, nontender. EXTREMITY: No lower extremity edema. SKIN: I could not see any visible track aguilar. His nasal cavity appears normal. NEURO: He is alert and oriented x3. His mother is at bedside. LABS: Suggestive of mild leukocytosis, normocytic anemia, normal platelet count. He has a normal coagulation profile. Elevated anion gap metabolic acidosis, lactic acidosis, acute kidney injury and hyperglycemia suggestive of diabetic ketoacidosis. His urinalysis has mild proteinuria, glucosuria and ketonuria. Urine toxicology positive for cannabis and cocaine. Blood cultures were collected. IMAGING: Chest x-ray does not have any acute cardiopulmonary process. ASSESSMENT AND PLAN: 1. Diabetic ketoacidosis in the setting of inadequate insulin dosing with suspected active cocaine abuse with history of DM type 1. 2. Chest pain likely in the setting of cocaine abuse and diabetic ketoacidosis. 3. 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 4. Acute kidney injury, lactic acidosis. PLAN: 1. I will resuscitate the patient with intravenous fluids and start him on intravenous insulin according to diabetic ketoacidosis protocol. I will replete electrolytes and monitor electrolytes every 4 hours. I will also follow up with hemoglobin A1c. 2. His EKG did not have any ST, T abnormality, though he does have peaked T- waves in anterior leads. I will follow up with troponins. He currently denies any chest pain. 3. He is currently mildly hypertensive. He is also a little anxious. I will avoid beta blockers to treat his hypertension considering he is active cocaine abuser. 4. Patient was counseled about quitting tobacco, marijuana and all recreational substances. He agreed to it. He does not want this information to be conveyed to his father. His mother is at bedside and he was okay discussing these issues in front of his mother. TIME SPENT: More than 30 minutes of critical care time was spent in the care of this patient, plan of care discussed with him. All of his questions satisfactorily answered. His mother's questions have also been addressed. cc: Raymundo Birch MD MTDD
[2019-09-18] MEDS ORDERED: ZOFRAN IV PRN (06:56)
[2019-09-18] MEDS ORDERED: TYLENOL PO PRN (06:56)
--- NOTE | 2019-09-18 20:57 | DISCHARGE SUMMARY ---
ADMISSION DATE: 09/17/2019 DISCHARGE DATE: 09/18/2019 AMA DISCHARGE DISPOSITION: Patient went home against medical advice overnight. I was not available at that moment. I learned it through documentation. DISCHARGE DIAGNOSIS: 1. Diabetic ketoacidosis in the setting of noncompliance with insulin dependent diabetes mellitus. 2. Chest pain likely in the setting of active cocaine abuse and diabetic ketoacidosis. 3. Hypertension likely in the setting of cocaine abuse and DKA . 4. Acute kidney injury. 5. Lactic acidosis. 6. Cannabis abuse. DISCHARGE MEDICATION: It could not be properly reconciled. VITALS: Documented at the time of discharge his temperature was 97.5 degrees, his pulse was 115, respiratory 24, blood pressure 138/68, was saturating 98% room air. I could not perform physical examination. LABS: At the time of hospital admission discharge WBC 11,000, hemoglobin 15.4, platelet 343,000. His initial pH was 7.25, pCO2 of 25, oxygen of 101, his lactate was 4, his creatinine was 1.3, BUN of 16, his blood glucose was 179. His urine toxicology was positive for cocaine, cannabis and acetone. SIGNIFICANT IMAGING: Chest x-ray on presentation did not have any acute disease. Electrocardiogram on presentation had normal sinus rhythm with sinus arrhythmia. Repeat echocardiogram sinus tachycardia. HOSPITAL COURSE SUMMARY: Mr. Coyle is 19 years old man with history of insulin- dependent diabetes mellitus, active tobacco abuse, active recreational substance abuse came in with chief complaints of intractable nausea, vomiting, abdominal pain and chest pain which started when he was in the bathroom taking a shower. He has had about 8 to 10 episodes of vomiting, in the emergency room he was found to have hyperglycemia, acidosis, low bicarbonate and ketones in the urine. He was diagnosed with DKA which was thought to be related to his use of cocaine as well as not taking insulin and he was resuscitated with intravenous fluids, intravenous insulin was started. Patient had also mention of feelings of chest pain at the center of the chest radiating to the left side though EKG did not have any acute pathology and troponins were unremarkable x3. He had admitted to be using cocaine in the form of snorting it however he said that he had taken it 4 or 5 days ago though it was not entirely clear about his recent consumption of it. It was thought his chest pain episode could be related to cocaine use or presence of DKA. He was started on insulin ip and was admitted to ICU however at nighttime he left against medical advice. On admission I had discussed the plans of tobacco cessation, recommendations of stopping cannabis and cocaine use as well as tobacco use and he had understood it. His mother was at bedside. 10 minutes were spent in preparing in this discharge summary. cc: Raymundo Birch MD MTDD
== END 2019-09-18 02:40 | disposition left against medical advice (07) | DRG 638 ==
LOC: ED 15:59 → ICU 20:52
PROVIDERS: ATTEND Internal Medicine